=== PATIENT | male | born 1995 | race Hispanic/Latino ===

== ENCOUNTER 2020-08-21 20:43 | Observation (INO) | payer SELFPAY ==
[2020-08-21 21:28] LABS: #Eosinphils 0.1 thou/uL (0.0-0.7); #Lymphocytes 1.2 thou/uL (1.20-3.40); #Monocytes 0.8 thou/uL (0.11-0.59); #Neutrophils 13.2 thou/uL (1.40-6.50); %Basophils 0.1 % (0.0-1.0); %Eosinophils 0.4 % (0.0-10.0); %Lymphocytes 7.6 % (21.0-51.0); Hemoglobin 14.6 g/dL (14.0-18.0); Mean Corpuscular HGB CONC 35.3 g/dL (32.0-36.0); Mean Corpuscular Hemoglobin 30.9 pg (27.0-31.0); Mean Corpuscular Volume 87.5 fL (78.0-98.0); Mean Platelet Volume 6.9 fL (7.4-10.4); Platelet Count 269 thou/uL (130-400); RBC Distribution Width 11.7 % (11.5-14.5); Red Blood Cell (RBC) Count 4.71 mill/uL (4.70-6.10); White Blood Cell (WBC) Count 15.2 thou/uL (4.8-10.8)
--- NOTE | 2020-08-21 21:31 | CT ---
CT OF BRAIN PERFORMED WITHOUT CONTRAST ENHANCEMENT: History: Syncope FINDINGS: The ventricular and cisternal system is within normal limits. There are no signs of intracerebral hem orrhage or extraaxial fluid collections. The mastoid air cells are poorly developed and there is muco rayray change bilaterally. There is some moderate ethmoid air cell mucosal change. IMPRESSION: No acute intracranial abnormalities. POS: OFF
--- NOTE | 2020-08-21 21:32 | RAD ---
PORTABLE CHEST: History: Syncope. FINDINGS: Heart size and mediastinum within normal limits. The lungs appear clear of any definite infiltrative process. No significant bony findings. IMPRESSION: No active intrathoracic disease. POS: OFF
[2020-08-21 21:39] LABS: ALT (SGPT) 12 U/L (8-55); AST (SGOT) 20 U/L (5-34); Albumin 4.4 g/dL (3.5-5.0); Alkaline Phosphatase 89 U/L (40-110); Anion Gap 11 mmol/L (10-20); BUN (Urea Nitrogen) 15 mg/dL (8.9-20.6); Bilirubin, Total 1.8 mg/dL (0.2-1.2); CK (CPK) 83 U/L (30-200); Calc. Creatinine Clearance 0 mL/min (70-130); Calcium 8.6 mg/dL (7.8-10.44); Carbon Dioxide 27 mmol/L (22-29); Chloride 102 mmol/L (98-107); Globulin 3.3 g/dL (2.4-3.5); Potassium 3.5 mmol/L (3.5-5.1); Protein, Total 7.7 g/dL (6.0-8.3); Sodium 136 mmol/L (136-145)
[2020-08-21 21:47] LABS: Glucose 174 mg/dL (70-105)
[2020-08-21 22:46] LABS: Bilirubin Negative (Negative); Blood, Urine Negative (Negative); Clarity Clear (Clear); Glucose, Urine (Dipstick) 300 mg/dL (Negative); Ketone, Urine Negative (Negative); Leukocyte Negative Leu/uL (Negative); Nitrite Negative (Negative); Protein, Urine (Dipstick) 10 mg/dL (Neg-Trace); Specific Gravity, Urine 1.031 (1.002-1.036); Urobilinogen Normal mg/dL (Less than 2)
[2020-08-21 22:58] LABS: Amphetamine Not Detected (NotDetected); Barbiturates Screen Not Detected (NotDetected); Benzodiazepine Screen Not Detected (NotDetected); Cocaine Metabolite Screen Not Detected (NotDetected); Medtox Control Line Valid? VALID (VALID); Medtox Reader # READER 4; Methadone Not Detected (NotDetected); Methamphetamine Not Detected (NotDetected); Opiate Screen Not Detected (NotDetected); Oxycodone Screen Not Detected (NotDetected); Phencyclidine (PCP) Not Detected (NotDetected); THC/Cannabinoid Screen Detected (NotDetected); Tricyclic Screen Not Detected (NotDetected)
[2020-08-21 23:15] LABS: Acetaminophen Less than 6.0 mcg/mL (10.0-30.0); Alcohol Less than 10 mg/dL (Less than 10); Salicylate Less than 8.0 mg/dL (15.0-30.0)
--- NOTE | 2020-08-22 01:06 | PDOC.HHP ---
Hospitalist HPI - History of Present Illness Syncope History of Present Illness: This is a 24-year-old male patient with no significant past medical history who presents here after he was said to have fainted at his workplace. 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 He was in the room with his brother. Patient notes that he has been in his usual state of hea lth when while working he passed out and was about to fall however bystanders caught him before he fell to the ground. He denied having hit his head. Prior to the incident though he had no prodromal symptoms of palpitations or nausea. This is his first episode of passing out. He said there was associated shaking during the event. This all lasted about a minute. On arrival his blood pressure was 130/71, pulse 84, respiratory 20, temperature 98 and saturation 100% on room air. His labs showed a mild leukocytosis of 15.2 with no bands. Hemoglobin was 14.6 and platelets 269. BMP was essentially within normal limits besides elevated glucose at 174. His prolactin was checked which was elevated at 24.3, UDS was positive for cannabis. CT scan of his head showed no acute intracranial event, chest x-ray showed no active intrathoracic disease. Patient was monitored in the ED and hospitalist team consulted for admission. Hospitalist ROS - Review of Systems Constitutional: denies: fever, chills, sweats, weakness Respiratory: denies: cough, shortness of breath, hemoptysis, SOB with excertion Gastrointestinal: denies: nausea, vomiting, abdominal pain, diarrhea Neurological: denies: weakness, numbness, incoordination, change in speech All other systems reviewed; all pertinent +/- noted in HPI/Subj - Medication Medications: Medications: Currently refer to ambulatory list. Allergies: No known drug allergies. Hospitalist History - Past Medical History Cardiac: reports: no pertinent history - Past Surgical History Past Surgical History: reports: no pertinent history - Family History Family History: reports: no pertinent history - Social History Smoking Status: Never smoker Alcohol: reports: None Living Situation: With Family Activity level: independent ambulation - Exam General Appearance: awake alert General - other findings: In no acute distress ENT: normocephalic atraumatic Neck: supple, symmetric Heart: RRR, no murmur, no gallops, no rubs Respiratory: CTAB, no wheezes, no rales, no ronchi Extremities: no cyanosis, no clubbing, no edema Neurological: cranial nerve grossly intact, no weakness, no focal deficits Psychiatric: normal affect, normal behavior, A&O x 3 Hospitalist Results - Labs Result Diagrams: 08/22/20 04:19 08/22/20 04:19 Lab results: WBC 15.2 thou/uL (4.8-10.8) H 08/21/20 21:04 Hgb 14.6 g/dL (14.0-18.0) 08/21/20 21:04 Hct 41.3 % (42.0-52.0) L 08/21/20 21:04 MCV 87.5 fL (78.0-98.0) 08/21/20 21:04 Plt Count 269 thou/uL (130-400) 08/21/20 21:04 Neutrophils % 87.0 % (42.0-75.0) H 08/21/20 21:04 Sodium 136 mmol/L (136-145) 08/21/20 21:04 Potassium 3.5 mmol/L (3.5-5.1) 08/21/20 21:04 Chloride 102 mmol/L (98-107) 08/21/20 21:04 Carbon Dioxide 27 mmol/L (22-29) 08/21/20 21:04 BUN 15 mg/dL (8.9-20.6) 08/21/20 21:04 Creatinine 0.87 mg/dL (0.7-1.3) 08/21/20 21:04 Glucose 174 mg/dL (70-105) H 08/21/20 21:04 Calcium 8.6 mg/dL (7.8-10.44) 08/21/20 21:04 Total Bilirubin 1.8 mg/dL (0.2-1.2) H 08/21/20 21:04 AST 20 U/L (5-34) 08/21/20 21:04 ALT 12 U/L (8-55) 08/21/20 21:04 Alkaline Phosphatase 89 U/L (40-110) 08/21/20 21:04 Creatine Kinase 83 U/L (30-200) 08/21/20 21:04 Troponin I Less than 0.010 ng/mL (< 0.028) 08/21/20 21:04 Serum Total Protein 7.7 g/dL (6.0-8.3) 08/21/20 21:04 Albumin 4.4 g/dL (3.5-5.0) 08/21/20 21:04 Urine Ketones Negative mg/dL (Negative) 08/21/20 22:18 Urine Blood Negative (Negative) 08/21/20 22:18 Urine Nitrite Negative (Negative) 08/21/20 22:18 Ur Leukocyte Esterase Negative Neil/uL (Negative) 08/21/20 22:18 Hospitalist H&P A/P - Plan Plan: This is a 25-year-old male patient with no significant past medical history presenting after an episode of syncope possible seizures. Syncope Unclear etiology We will admit monitor on telemetry Check orthostatic vitals Echocardiogram in a.m. Possible seizures Consult neuro for EEG in a.m. VT prophylaxisLovenox CODE STATUSfull
[2020-08-22 01:38] LABS: Troponin I Less than 0.010 ng/mL (< 0.028)
[2020-08-22 04:30] LABS: #Eosinphils 0.1 thou/uL (0.0-0.7); #Monocytes 0.7 thou/uL (0.11-0.59); #Neutrophils 8.1 thou/uL (1.40-6.50); %Basophils 0.3 % (0.0-1.0); %Lymphocytes 18.1 % (21.0-51.0); %Monocytes 6.3 % (0.0-10.0); %Neutrophils 74.4 % (42.0-75.0); Hemoglobin 13.8 g/dL (14.0-18.0); Mean Corpuscular HGB CONC 34.1 g/dL (32.0-36.0); Mean Corpuscular Hemoglobin 30.1 pg (27.0-31.0); Mean Corpuscular Volume 88.3 fL (78.0-98.0); Mean Platelet Volume 6.9 fL (7.4-10.4); Platelet Count 276 thou/uL (130-400); RBC Distribution Width 11.7 % (11.5-14.5); Red Blood Cell (RBC) Count 4.59 mill/uL (4.70-6.10); White Blood Cell (WBC) Count 10.9 thou/uL (4.8-10.8)
[2020-08-22 04:51] LABS: Anion Gap 13 mmol/L (10-20); BUN (Urea Nitrogen) 11 mg/dL (8.9-20.6); Calc. Creatinine Clearance 0 mL/min (70-130); Calcium 8.8 mg/dL (7.8-10.44); Carbon Dioxide 27 mmol/L (22-29); Chloride 103 mmol/L (98-107); Glucose 102 mg/dL (70-105); Potassium 3.5 mmol/L (3.5-5.1); Sodium 139 mmol/L (136-145)
[2020-08-22] MEDS: Enoxaparin Sodium 40 MG/0.4 ML SYRINGE SC SCH (08:54)
[2020-08-22] MEDS ORDERED: Enoxaparin Sodium 40 MG/0.4 ML SYRINGE ONE (08:54)
[2020-08-22] MEDS ORDERED: FLU VACC QS2020-21(6MOS UP)/PF 60 MCG/0.5 ML SYRINGE IM ONE (09:00)
[2020-08-22] MEDS ORDERED: Zolpidem Tartrate 5 MG TAB PO PRN (11:11)
[2020-08-22] MEDS ORDERED: Cepastat Lozenges 1 LOZ PO PRN (11:11)
[2020-08-22] MEDS ORDERED: HYDROcodone/Acetaminophen 5/325 mg Tablet PO PRN (11:11)
[2020-08-22] MEDS ORDERED: Ondansetron PF 4 MG/2 ML Vial IVP PRN (11:11)
[2020-08-22] MEDS ORDERED: Benzonatate 100 MG CAP PO PRN (11:11)
[2020-08-22] MEDS ORDERED: Bisacodyl 5 MG TAB PO PRN (11:11)
[2020-08-22] MEDS ORDERED: Calcium Carbonate 500 MG ChewTAB PO PRN (11:11)
[2020-08-22] MEDS ORDERED: Sodium Chloride 0.65% Nasal 44 ML BOT EA NARE PRN (11:11)
[2020-08-22] MEDS ORDERED: GUAIFENESIN SF SOLN 200 MG/10 ML UDCUP PO PRN (11:11)
[2020-08-22] MEDS ORDERED: Loperamide HCl 2 MG CAP PO PRN (11:11)
[2020-08-22] MEDS ORDERED: Loratadine 10 MG TAB PO PRN (11:11)
[2020-08-22] MEDS ORDERED: hydrALAZINE 20 MG/ML VIAL SLOW IVP PRN (11:11)
[2020-08-22] MEDS ORDERED: Ondansetron ODT 4 MG TAB SL PRN (11:11)
[2020-08-22] MEDS ORDERED: Senokot S 8.6-50 MG TAB PO PRN (11:11)
[2020-08-22 13:20] VITALS: BMI 22.5
[2020-08-22] MEDS ORDERED: Magnevist 469MG/ML 20 ML VIAL ONE (14:11)
[2020-08-22 14:19] LABS: SARS-CoV-2 PCR by NAA Not Detected (NotDetected)
--- NOTE | 2020-08-22 14:25 | PDOC.HOSPP ---
- Subjective Encounter Date: 08/22/20 Encounter Time: 11:45 Subjective: Patient seen and examined. No new complaints. No overnight events - Objective Vital Signs & Weight: Vital Signs (12 hours) Temp Pulse Resp BP BP Pulse Ox 08/22/20 13:18 97.9 F 68 16 107/55 L 97 08/22/20 04:00 98.3 F 67 12 100/56 L 100 Weight Weight 135 lb 6.4 oz Result Diagrams: 08/22/20 04:19 08/22/20 04:19 EKG Reviewed by me: Yes Hospitalist ROS - Review of Systems ENT: denies: ear pain, ear discharge, nose pain, nose discharge, nose congestion, mouth pain, mouth swelling, throat pain, throat swelling, other Respiratory: denies: cough, dry, shortness of breath, hemoptysis, SOB with excertion, pleuritic pain, sputum, wheezing, other Cardiovascular: denies: chest pain, palpitations, orthopnea, paroxysmal noc. dyspnea, edema, light headedness, other Gastrointestinal: denies: nausea, vomiting, abdominal pain, diarrhea, constipation, melena, hematochezia, other Genitourinary: denies: dysuria, frequency, incontinence, hematuria, retention, other Musculoskeletal: denies: neck pain, shoulder pain, arm pain, back pain, hand pain, leg pain, foot pain, other - Medication Medications: Active Medications Generic Name Dose Route Start Last Admin Trade Name Freq PRN Reason Stop Dose Admin Enoxaparin Sodium 40 mg 08/22/20 09:00 08/22/20 08:54 Enoxaparin Sodium 40 Mg/0.4 Ml Syringe SC 40 mg 0900 [facility] Administration - Exam General Appearance: NAD, awake alert Eye: PERRL, anicteric sclera ENT: normocephalic atraumatic, no oropharyngeal lesions Neck: supple, symmetric, no JVD, no thyromegaly Heart: RRR, no murmur, no gallops, no rubs Respiratory: no wheezes, no rales, no ronchi Gastrointestinal: soft, non-tender, non-distended, normal bowel sounds Extremities: no cyanosis, no clubbing, no edema Skin: normal turgor, no lesions Neurological: no focal deficits Musculoskeletal: normal tone, normal strength Psychiatric: normal affect, normal behavior Hosp A/P (1) Seizure Code(s): R56.9 - UNSPECIFIED CONVULSIONS Status: Suspected (2) Cannabis abuse Code(s): F12.10 - CANNABIS ABUSE, UNCOMPLICATED Status: Chronic - Plan old records reviewed/req MRI result pending EEG pending Neurology evaluated this patient recommendation appreciated Echocardiography pending Monitor for 24 hours telemetry Expecting discharge tomorrow if work-up is negative
--- NOTE | 2020-08-22 15:40 | CON ---
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 HISTORY OF PRESENT ILLNESS: Mr. Morris is a 24-year-old male with no significant past medical history, presented to the emergency room because of loss of consciousness. The patient is Tuvaluan speaking. History is taken with the help of the medical student who understands Tuvaluan. Per patient, he has loss of vision in the left eye, which resolved on its own, but associated with some loss of consciousness. The patient denies nausea, vomiting, headache, chest pain, abdominal pain, recent illness or recent exposure to COVID. He denies any family history of epilepsy or history of seizures as a child. This is his first episode of passing out and he has no prior episode of loss of vision. In the emergency room, he was found to have mild leukocytosis with 15.2. CT scan did not show any acute intracranial pathology. Chest x-ray showed no cardiopulmonary process. He was consulted by Neurology for further evaluation. REVIEW OF SYSTEMS: All systems reviewed and were negative except the pertinent positives and negatives mentioned in the HPI. MEDICATIONS: Refer to the ambulatory list for current medication. ALLERGIES: NO KNOWN DRUG ALLERGIES. PAST MEDICAL HISTORY: Not significant. PAST SURGICAL HISTORY: Not significant. FAMILY HISTORY: Not significant. SOCIAL HISTORY: The patient lives with family. Denies smoking, alcohol. Vital Signs & Weight: Vital Signs (12 hours) Temp Pulse Resp BP BP Pulse Ox 08/22/20 13:18 97.9 F 68 16 107/55 L 97 08/22/20 04:00 98.3 F 67 12 100/56 L 100 Weight Weight 135 lb 6.4 oz Active Medications Generic Name Dose Route Start Last Admin Trade Name Freq PRN Reason Stop Dose Admin Enoxaparin Sodium 40 mg 08/22/20 09:00 08/22/20 08:54 Enoxaparin Sodium 40 Mg/0.4 Ml Syringe SC 40 mg 0900 [facility] Administration PHYSICAL EXAMINATION: General Appearance: awake alert General - other findings: In no acute distress ENT: normocephalic atraumatic Neck: supple, symmetric Heart: RRR, no murmur, no gallops, no rubs Respiratory: CTAB, no wheezes, no rales, no ronchi Extremities: no cyanosis, no clubbing, no edema Neurological: Mental status, the patient is alert and oriented to person, place, and time. Recent and remote memory intact. Fund of knowledge is appropriate. Speech is clear. Cranial nerves 2 through 12 intact. Motor, muscle tone and bulk are normal. Strength 5/5 bilaterally. Sensory intact. Cerebellar, finger-nose testing intact. Gait deferred due to patient's safety reason. DATA REVIEWED: I reviewed the labs and head CT, which did not reveal any acute intracranial pathology. Lab results: WBC 15.2 thou/uL (4.8-10.8) H 08/21/20 21:04 Hgb 14.6 g/dL (14.0-18.0) 08/21/20 21:04 Hct 41.3 % (42.0-52.0) L 08/21/20 21:04 MCV 87.5 fL (78.0-98.0) 08/21/20 21:04 Plt Count 269 thou/uL (130-400) 08/21/20 21:04 Neutrophils % 87.0 % (42.0-75.0) H 08/21/20 21:04 Sodium 136 mmol/L (136-145) 08/21/20 21:04 Potassium 3.5 mmol/L (3.5-5.1) 08/21/20 21:04 Chloride 102 mmol/L (98-107) 08/21/20 21:04 Carbon Dioxide 27 mmol/L (22-29) 08/21/20 21:04 BUN 15 mg/dL (8.9-20.6) 08/21/20 21:04 Creatinine 0.87 mg/dL (0.7-1.3) 08/21/20 21:04 Glucose 174 mg/dL (70-105) H 08/21/20 21:04 Calcium 8.6 mg/dL (7.8-10.44) 08/21/20 21:04 Total Bilirubin 1.8 mg/dL (0.2-1.2) H 08/21/20 21:04 AST 20 U/L (5-34) 08/21/20 21:04 ALT 12 U/L (8-55) 08/21/20 21:04 Alkaline Phosphatase 89 U/L (40-110) 08/21/20 21:04 Creatine Kinase 83 U/L (30-200) 08/21/20 21:04 Troponin I Less than 0.010 ng/mL (< 0.028) 08/21/20 21:04 Serum Total Protein 7.7 g/dL (6.0-8.3) 08/21/20 21:04 Albumin 4.4 g/dL (3.5-5.0) 08/21/20 21:04 Urine Ketones Negative mg/dL (Negative) 08/21/20 22:18 Urine Blood Negative (Negative) 08/21/20 22:18 Urine Nitrite Negative (Negative) 08/21/20 22:18 Ur Leukocyte Esterase Negative Neil/uL (Negative) 08/21/20 22:18 ASSESSMENT AND PLAN: Mr. Arturo Pierson is a 24-year-old male who presented with an episode of syncope. Per patient, he had left eye blindness, which resolved on its own prior to the episode. There is no documentation of rhythmic jerking, tongue bite, urinary incontinence, post postictal state. Unilateral vision loss can be seen with optic neuritis versus amaurosis fugax. Consider MRI of the brain and MRI of the orbit to rule out acute intracranial process, 2D echocardiogram to evaluate for left ventricular ejection fraction, telemetry to rule out arrhythmias. Aspirin and statin for secondary stroke prevention. Carotid Dopplers to rule out hemodynamically significant stenosis. EEG to evaluate for cortical irritability. Neuro checks every 4 hours. Observe seizure precautions. Continue medical management per primary team. Further recommendations will depend on the results of the testing. We will continue to follow. Thank you for the consult. Job ID: [id number] MTDD
--- NOTE | 2020-08-22 16:20 | MRI ---
EXAM: MRI Brain and orbits W [facility] PROVIDED CLINICAL HISTORY: Sudden vision loss, now resolved. Syncope. COMPARISON: CT head on 08/21/2020 FINDINGS: No signal abnormalities are seen throughout the brain. There are no areas of restricted diffusion see n to suggest an acute infarction. No abnormal areas of enhancement are seen after the administration of intravenous contrast. The septum pellucidum and third ventricle are in the midline. The ventricular system is normal in siz e, shape, and position. The orbits are normal and symmetric in appearance bilaterally. No orbital mass is seen. Extraocular m uscles are symmetric in appearance bilaterally. Optic nerves also appear symmetric in appearance bilaterally. No fluid is seen along the course of either optic nerve. Appropriate flow voids are demonstrated at the base of the brain. Mild mucosal thickening is seen in the ethmoidal air cells bilaterally as well as in each sphenoid si nus and left maxillary antrum. Mastoid air cells are not well pneumatized. However, there is increased T2-weighted signal intensity in region of the mastoid air cells suggesting mastoid effusions with coalescence of effusions involving the mastoid air cells. This finding was also seen on recent CT head. IMPRESSION: 1. No acute intracranial abnormalities demonstrated. 2. Mild sinus disease. 3. Mastoid air cells are not well pneumatized but mastoid effusions are seen.
[2020-08-23 05:40] LABS: Troponin I Less than 0.010 ng/mL (< 0.028)
[2020-08-23] MEDS: Enoxaparin Sodium 40 MG/0.4 ML SYRINGE SC SCH (08:50)
--- NOTE | 2020-08-23 10:38 | PDOC.EEG ---
Neurology EEG Report - Report Report: This EEG was performed using 24 channel [employer] video EEG machine with 24 disc electrodes. This was an extended 2 hours 5 minutes of inpatient video EEG recording. Digital analysis of the EEG was done for spike and seizure detection which revealed no abnormalities. Background: There is a nonsustained posterior background rhythm of 8.5 -9 Hz. The background rhythm attenuates with eye opening and enhances with eye closure. Hyperventilation: Not performed. Photic Stimulation: No significant response. Sleep: Drowsiness is observed. EEG Diagnosis: Normal awake and drowsy EEG.
--- NOTE | 2020-08-23 11:44 | ULT ---
ULTRASOUND CAROTID DOPPLER: HISTORY: Transient ischemic attack. COMPARISON: None. FINDINGS: Real-time, roger scale, color, and spectral analysis of the extracranial, carotid and vertebral arteri es is performed. No elevated peak systolic velocities within the internal carotid arteries. Antegrade flow of both ve rtebral arteries. IMPRESSION: No hemodynamically significant stenosis. POS: [facility]
--- NOTE | 2020-08-23 13:47 | PDOC.NEUPN ---
- Subjective Encounter Date: 08/23/20 Subjective: Mr. Morris did not complain of any new events in the last 24 hours. He is back to his baseline. - Objective Vital Signs & Weight: Vital Signs (12 hours) Temp Pulse Resp BP BP BP BP 08/23/20 10:26 109/55 L 108/57 L 108/58 L 08/23/20 07:24 97.8 F 57 L 15 110/55 L 08/23/20 05:05 98.5 F 76 13 110/53 L Pulse Ox 08/23/20 10:26 08/23/20 07:24 97 08/23/20 05:05 99 Weight Weight 135 lb 6.4 oz I&O: 08/22/20 08/23/20 08/24/20 06:59 06:59 06:59 Intake Total 10 Balance 10 Result Diagrams: 08/22/20 04:19 08/22/20 04:19 Radiology Reviewed by me: Yes EKG Reviewed by me: Yes ROS - Review of Systems Constitutional: denies: fever, chills, sweats, weakness, malaise, other Eyes: denies: pain, vision change, conjunctivae inflammation, eyelid inflammation, redness, other ENT: denies: ear pain, ear discharge, nose pain, nose discharge, nose congestion, mouth pain, mouth swelling, throat pain, throat swelling, other Respiratory: denies: cough, dry, shortness of breath, hemoptysis, SOB with excertion, pleuritic pain, sputum, wheezing, other Cardiovascular: denies: no pertinent history, AFIB, CAD, CHF, HTN, [place], Syncope, Hyperlipidemia, Mitral valve stenosis, Aortic stenosis, Valve insufficiency, Pulmonary hypertension, Other Genitourinary: denies: dysuria, frequency, incontinence, hematuria, retention, other Musculoskeletal: denies: neck pain, shoulder pain, arm pain, back pain, hand pain, leg pain, foot pain, other Skin: denies: rash, lesions, sandrine, bruising, other Neurological: denies: weakness, numbness, incoordination, change in speech, confusion, seizures, other - Medication Medications: Active Medications Generic Name Dose Route Start Last Admin Trade Name Freq PRN Reason Stop Dose Admin Enoxaparin Sodium 40 mg 08/22/20 09:00 08/23/20 08:50 Enoxaparin Sodium 40 Mg/0.4 Ml Syringe SC 40 mg 0900 [facility] Administration - Exam General Appearance: awake alert Eye: PERRL ENT: normocephalic atraumatic Neck: supple Respiratory: CTAB Cardiovascular: RRR Gastrointestinal: soft Extremities: no cyanosis Skin: normal turgor Neurological: CN's grossly intact, normal sensation to touch, no weakness, no focal deficits, no new deficit Musculoskeletal: normal tone, normal strength, no muscle wasting PSYCH: normal affect, normal behavior, A&O x 3 Results - Labs Result Diagrams: 08/22/20 04:19 08/22/20 04:19 Lab results: WBC 10.9 thou/uL (4.8-10.8) H 08/22/20 04:19 Hgb 13.8 g/dL (14.0-18.0) L 08/22/20 04:19 Hct 40.5 % (42.0-52.0) L 08/22/20 04:19 MCV 88.3 fL (78.0-98.0) 08/22/20 04:19 Plt Count 276 thou/uL (130-400) 08/22/20 04:19 Neutrophils % 74.4 % (42.0-75.0) 08/22/20 04:19 Sodium 139 mmol/L (136-145) 08/22/20 04:19 Potassium 3.5 mmol/L (3.5-5.1) 08/22/20 04:19 Chloride 103 mmol/L (98-107) 08/22/20 04:19 Carbon Dioxide 27 mmol/L (22-29) 08/22/20 04:19 BUN 11 mg/dL (8.9-20.6) 08/22/20 04:19 Creatinine 0.82 mg/dL (0.7-1.3) 08/22/20 04:19 Glucose 102 mg/dL (70-105) 08/22/20 04:19 Calcium 8.8 mg/dL (7.8-10.44) 08/22/20 04:19 Total Bilirubin 1.8 mg/dL (0.2-1.2) H 08/21/20 21:04 AST 20 U/L (5-34) 08/21/20 21:04 ALT 12 U/L (8-55) 08/21/20 21:04 Alkaline Phosphatase 89 U/L (40-110) 08/21/20 21:04 Creatine Kinase 83 U/L (30-200) 08/21/20 21:04 Troponin I Less than 0.010 ng/mL (< 0.028) 08/23/20 04:15 Serum Total Protein 7.7 g/dL (6.0-8.3) 08/21/20 21:04 Albumin 4.4 g/dL (3.5-5.0) 08/21/20 21:04 Urine Ketones Negative mg/dL (Negative) 08/21/20 22:18 Urine Blood Negative (Negative) 08/21/20 22:18 Urine Nitrite Negative (Negative) 08/21/20 22:18 Ur Leukocyte Esterase Negative Neil/uL (Negative) 08/21/20 22:18 - EKG Interpretation EKG: Normal sinus rhythm - Radiology Interpretation MRI - head Additional Comment: MRI of the brain and MRI of the orbits reviewed which was negative for acute intracranial pathology. PN A/P (1) Syncope Code(s): R55 - SYNCOPE AND COLLAPSE Status: Acute (2) Vision changes Code(s): H53.9 - UNSPECIFIED VISUAL DISTURBANCE Status: Acute (3) Cannabis abuse Code(s): F12.10 - CANNABIS ABUSE, UNCOMPLICATED Status: Chronic (4) Seizure Code(s): R56.9 - UNSPECIFIED CONVULSIONS Status: Suspected - Plan Daily Plan: out of bed/ambulate Mr. Morris is a 24-year-old Citizen Of The [place]-speaking male who was admitted because of an episode of passing out with loss of vision in the left eye which resolved on its own. MRI of the brain with and without contrast reviewed which was negative for acute intracranial pathology or demyelinating lesions. Optic nerve seems symmetrical and no fluid seen around the optic nerve. Carotid Dopplers did not reveal hemodynamically significant stenosis. 2D echo to evaluate for left ventricular ejection fraction is pending at this time. EEG reviewed which was negative for seizure activity. Neurochecks every 4 hours. Continue home medications. Continue telemetry to rule out arrhythmias. Continue further syncope work-up Continue medical management per primary team. PT/OT Plan discussed in detail with the patient including the test results.
[2020-08-23 16:00] VITALS: BP 113/60; TEMP 98.5
--- NOTE | 2020-08-23 16:02 | PDOC.DS.DS ---
Provider - Provider Date of Admission: 08/21/20 23:51 Date of Discharge: 08/23/20 Admitting Provider: José Miguel Strickland MD Consultations: Neurology (Dr. Mahan) Primary Care Physician: Unknown Course - Hospital Course Hospital Course: Discharge diagnosis: 1. Syncope 2. Vision changes 3. Cannabis abuse 4. COVID-19 test negative Hospital course: Patient is a pleasant 24-year-old gentleman who was admitted to the hospital on August 22, 2020 following a syncopal episode. MRI of the brain did not show any acute intracranial abnormalities. He had mild sinus disease. Carotid Dopplers did not show any hemodynamically significant stenosis. He had an elevated prolactin level. However, EEG was negative for seizure activity. 2D echocardiogram showed left ventricle ejection fraction of 55 to 60%, trace mitral regurgitation and trace tricuspid regurgitation. Patient did not have recurrence, and is being discharged home in a stable condition. Resuscitation Status: 08/22/20 01:03 Resuscitation Status Routine Resuscitation Status: FULL: Full Resuscitation - Labs Lab Results: 08/22/20 04:19 08/22/20 04:19 Abnormal Lab Results - Last 48 hrs 08/21/20 21:04: WBC 15.2 H, Hct 41.3 L, MPV 6.9 L, Neutrophils % 87.0 H, Lymphocytes % 7.6 L, Neutrophils # 13.2 H, Monocytes # 0.8 H 08/21/20 21:04: Total Bilirubin 1.8 H 08/21/20 21:04: Prolactin 24.30 H 08/21/20 21:04: Salicylates Less than 8.0 L, Acetaminophen Less than 6.0 L 08/21/20 22:18: U Cannabinoids Screen Detected H 08/22/20 04:19: WBC 10.9 H, RBC 4.59 L, Hgb 13.8 L, Hct 40.5 L, MPV 6.9 L, Lymphocytes % 18.1 L, Neutrophils # 8.1 H, Monocytes # 0.7 H - Physical Exam Vitals: Vital Signs (12 hours) Temp Pulse Resp BP BP BP BP 08/23/20 10:26 109/55 L 108/57 L 108/58 L 08/23/20 07:24 97.8 F 57 L 15 110/55 L 08/23/20 05:05 98.5 F 76 13 110/53 L Pulse Ox 01/20/21 10:26 08/23/20 07:24 97 08/23/20 05:05 99 Weight Weight 135 lb 6.4 oz Physical Exam: The patient was seen and examined on the day of discharge. Patient denies chest pain or shortness of breath. Vital signs are stable. S1 and S2 are heard. Lungs are clear to auscultation bilaterally. Plan - Discharge Medications Home Medications: Medication Instructions Recorded Confirmed Type No Known 08/22/20 08/22/20 History Allergies: No Known Allergies Allergy (Unverified 08/22/20 01:57) - Follow up Plan Referrals: Unknown,Unknown [Primary Care Provider] - Disposition: HOME Quality - Care Measures CORE MEASURES:: N/A
--- NOTE | 2020-09-09 19:13 | EKG ---
Test Reason : Blood Pressure : / mmHG Vent. Rate : 079 BPM Atrial Rate : 079 BPM P-R Int : 138 ms QRS Dur : 076 ms QT Int : 372 ms P-R-T Axes : 054 041 032 degrees QTc Int : 426 ms Normal sinus rhythm Normal ECG Confirmed by BALDOMERO RON DO ([id number]), production editor PILAR ENGEL ([id number]) on 09/09/2020 7:13:22 PM Referred By: Confirmed By:BALDOMERO RON DO
== END 2020-08-23 17:22 | disposition home or self-care (01) ==
LOC: ERS 20:43 → EDBD 20:43 → ERHOLD 23:51 → 2NO 08-22 12:11
PROVIDERS: ADMIT Student in an Organized Health Care Education/Training Program; ATTEND Internal Medicine
DX: R55 Syncope and collapse (principal); H54.62 Unqualified visual loss, left eye, normal vision right eye; F12.10 Cannabis abuse, uncomplicated; D72.829 Elevated white blood cell count, unspecified; R56.9 Unspecified convulsions; J32.9 Chronic sinusitis, unspecified; Z20.822 Contact with and (suspected) exposure to COVID-19
CPT/HCPCS: 36415; 70450; 70553; 71045; 80048; 80053; 80306; 80307; 81003; 82550; 84146; 84484; 85025; 87635; 93005; 93306; 93880; 95816; 96372; A9579; G0378; J1650; U0003; U0005